=== PATIENT | male | born 1970 | race Caucasian/White ===

== ENCOUNTER 2019-07-19 11:13 | Day surgery (SDC) | payer BC ==
[~2019-07-19 11:13] MED LIST: Sensorcaine 0.25% 10 ML ONE
[2019-07-19] MEDS ORDERED: Lactated Ringers 1,000 ML IV ONE ×2 (11:23→13:50)
[2019-07-19] MEDS ORDERED: Lactated Ringers 1,000 ML IV SCH (11:30)
--- NOTE | 2019-07-19 13:08 | HP ---
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 Previous I&D by Monika Cheng, Dr. Hoskins and Dr. Ha in the past. Increased pain, swelling and some redness. Started on some Bactrim on Friday. Given the recurrent nature probably benefit from excision. PAST MEDICAL HISTORY: Hypertension. Embolization. PAST SURGICAL HISTORY: Shoulder surgery in the past as well as prior I&D of the area in the past. MEDICATIONS: Lisinopril, tetracycline, Bactrim. ALLERGIES: NKDA. FAMILY HISTORY: Negative in regards to this problem. SOCIAL HISTORY: No alcohol abuse. REVIEW OF SYSTEMS: Fourteen systems reviewed pertinent for as noted above. No chest pain or palpitations. PHYSICAL EXAMINATION: GENERAL: No acute distress. HEENT: Sclerae nonicteric. NECK: No JVD. CHEST: Equal excursion, nonlabored breathing. CVS: Regular rate and rhythm. ABDOMEN: Soft. EXTREMITIES: No significant edema. NEURO: Alert, oriented, moving extremities symmetrically. No gross motor deficits noted. BACK: He has a tender upper back area which seems to be consistent with likely infected, ruptured cyst site. No drainage currently. IMPRESSION: Recurrent infected ruptured cyst site on back. I feel the patient will benefit from excisional biopsy. Risks and benefits explained in detail including but not limited to bleeding or infection, possible need for packing at the time of surgery, possible dehiscence possibly requiring packing at later date, risk of hematoma or seroma formation, general risk of aches, pains, burning or numbness. The fact that what we excise once he heals the wound likely not recur but he could get similar cyst or nodule adjacent to or elsewhere on his back or body. He understands as well as general risk of anesthesia, deep venous thrombosis, pulmonary embolism, pneumonia, general risk of aches and pains but not limited to, will proceed with excisional biopsy of infected, ruptured cyst site on his back as an outpatient.
[2019-07-19] MEDS ORDERED: Versed 2 MG/2 ML Injection ONE (13:23)
[2019-07-19] MEDS ORDERED: SUBLIMAZE 250 MCG/5 ML ONE (13:23)
[2019-07-19] MEDS ORDERED: Zemuron 100 MG/10 ML ONE (13:23)
[2019-07-19] MEDS ORDERED: DIPRIVAN 200 MG/20 ML IV ONE (13:23)
[2019-07-19] MEDS ORDERED: Quelicin Fliptop 200 MG/10 ML ONE (13:23)
[2019-07-19] MEDS ORDERED: KEFZOL 1 GM ONE (13:38)
[2019-07-19] MEDS ORDERED: MORPHINE SULFATE 10 MG/ML ONE (13:47)
[2019-07-19] MEDS ORDERED: BRIDION 200MG/2ML IV ONE (13:50)
[2019-07-19] MEDS ORDERED: PHENYLEPHRINE HCL ONE (13:56)
[2019-07-19 16:00] VITALS: O2SAT 96
[2019-07-19 16:54] VITALS: BP 142/83; PULSE 72
--- NOTE | 2019-07-20 08:15 | OP ---
SURGERY DATE/TIME: 07/19/2019 1324 PREOPERATIVE DIAGNOSIS: Infected ruptured cyst site of back. POSTOPERATIVE DIAGNOSIS: Infected ruptured cyst site of back. PROCEDURE: Excisional biopsy of recurrent infected ruptured cyst site back (approximately 4.5 cm with margins). SURGEON: Dr. Hakan Day. ANESTHESIA: General. ESTIMATED BLOOD LOSS: Minimal. INDICATIONS: As noted above. Risks and benefits explained in detail and not limited to and consent obtained. DESCRIPTION OF PROCEDURE AND FINDINGS: The patient is taken to the operating room. General anesthesia induced. Placed in lateral position, appropriate padding per anesthesia and OR staff. Back was prepped and draped in usual sterile fashion. After official time out and no disagreement with planned procedure, a small spindle-shaped segment of skin overlying this large and recurrent ruptured infected cyst site. Dissection carried down circumferentially around this infected cyst. Dissecting down and off the underlying normal fascia and subcu. Specimen passed off. It measured about 4.5 cm in size. There was no spillage of any purulence. There was a little bit of purulence from the ruptured cyst site that is cultured outside the body. There is no evidence of any residual pus or cyst wall material in the wound. Hemostasis controlled with some brief bursts of pin point cautery. Good hemostasis noted. As the site had been fairly clean, it was felt he warranted attempted closure. In intermediate fashion closed with deep and superficial closed with 3-0 Vicryl, skin closed with 4-0 Vicryl, interrupted 3-0 Prolene used to reinforce the area given the location on the back. Steri-Strips and sterile dressing applied. The patient tolerated the procedure well. He is to continue on his Bactrim DS at this point. He will follow up in the office in two weeks for possible suture removal, sooner if any questions or concerns. He was transferred to the recovery room in stable condition. There was no family available to discuss the findings with. Cultures had been sent.
== END 2019-07-19 16:45 | disposition home or self-care (01) ==
LOC: SDC 11:13
PROVIDERS: ATTEND Surgery
DX: L72.9 Follicular cyst of the skin and subcutaneous tissue, unspecified (principal)
CPT/HCPCS: 87070; 88304; J0330; J0690; J2250; J2270; J2370; J2704; J3010